=== PATIENT | female | born 1960 | race Caucasian/White ===

== ENCOUNTER 2022-04-10 08:00 | Outpatient (CLI) | payer OTHER, SELFPAY ==
[2022-04-10 14:20] LABS: Chloride* 105 mmol/L (96-114); Potassium* 4.5 mmol/L (3.6-5.1); Sodium* 141 mmol/L (135-149)
[2022-04-10 14:23] LABS: Blood Urea Nitrogen* 16 mg/dL (7-30); Carbon Dioxide* 29 mmol/L (20-32); Cholesterol* 152 mg/dL (90-199); Creatinine* 0.8 mg/dL (0.5-1.5); Estimated Glomerular Filt Rate 83 ml/min; Glucose* 80 mg/dL (60-115); Triglycerides* 80 mg/dL (40-149)
[2022-04-10 14:24] LABS: Calcium* 9.9 mg/dL (8.4-10.6); HDL Cholesterol* 56 mg/dL (>=50); LDL Cholesterol Calculated 80 mg/dL (<100)
== END 2022-04-10 08:01 | disposition home or self-care (01) ==
PROVIDERS: PCP Family Medicine; Visit Provider Family Medicine
DX: E78.5 Hyperlipidemia, unspecified (principal); Z13.1 Encounter for screening for diabetes mellitus
CPT/HCPCS: 80048; 80061

== ENCOUNTER 2022-05-19 19:08 | Outpatient (CLI) | payer OTHER, SELFPAY ==
--- NOTE | 2022-05-19 19:30 | CRLHL7_ITS ---
For Patients: As a result of the Century Cures Act, medical imaging exams and procedure reports are released immediately into your electronic medical record. You may view this report before your referring provider. If you have questions, please contact your health care provider. BILATERAL SCREENING MAMMOGRAM WITH COMPUTER-AIDED DETECTION TECHNIQUE: CC and MLO views were obtained. These mammographic images have been obtained using full-field digital technique. These mammographic images were interpreted with the benefit of computer-aided detection. COMPARISON FILM: 04/29/2021, 03/15/2020, 10/14/2018. FINDINGS: There are scattered areas of fibroglandular density IMPRESSION: There is no radiographic evidence for malignancy. ASSESSMENT: BI-RADS Category 1: Negative RECOMMENDATION: Routine screening mammogram in 1 year. A lay language report of this examination will be provided to the patient. Aroldo Cisneros M.D. Diagnostic Radiologist [email or web address] Transcribed: 4:23 pm DW/Dictated by: Aroldo Cisneros MD @ 05/20/2022 4:39:00 PM (Electronically Signed)
== END 2022-05-19 19:09 | disposition home or self-care (01) ==
LOC: MAMMO 19:09
PROVIDERS: PCP Family Medicine; Visit Provider Family Medicine
DX: Z12.31 Encounter for screening mammogram for malignant neoplasm of breast (principal)
CPT/HCPCS: 77063; 77067

== ENCOUNTER 2023-04-16 08:05 | Outpatient (CLI) | payer OTHER, SELFPAY | END 2023-04-16 08:06 | disposition home or self-care (01) | PROVIDERS: PCP Family Medicine; Visit Provider Family Medicine | DX: E78.5 Hyperlipidemia, unspecified (principal); Z13.1 Encounter for screening for diabetes mellitus | CPT/HCPCS: 80048; 80061 ==

== ENCOUNTER 2023-12-31 15:12 | Outpatient (CLI) | payer OTHER, SELFPAY ==
--- NOTE | 2023-12-31 15:30 | CRLHL7_ITS ---
For Patients: As a result of the Century Cures Act, medical imaging exams and procedure reports are released immediately into your electronic medical record. You may view this report before your referring provider. If you have questions, please contact your health care provider. INDICATION: Bilateral hearing loss. TECHNIQUE: Sagittal T1 axial FLAIR T2 diffusion-weighted gadolinium-enhanced axial and coronal T1 images of the entire brain. Thin section axial and coronal T1 weighted images with and without gadolinium contrast and fat saturation and high-resolution axial T2 weighted images centering on the internal auditory canals. FINDINGS: There is no evidence of acoustic neuroma/vestibular schwannoma. No pathologic enhancement of the inner ear structures. Normal high T2 signal intensity of the membranous labyrinth noted bilaterally. There are small vascular loops within the CP angle cisterns bilaterally; near the root entry zones of both the 7th and 8th cranial nerves. Routine images of the brain showed normal ventricular size and shape. No evidence of recent ischemic infarction no areas of diffusion restriction no mass effect no evidence of hemorrhage. Few punctate foci of FLAIR/T2 hyperintensity within cerebral white matter may relate to migraine or mild chronic microvascular ischemia. No enhancing intra-axial or extra-axial lesion. Orbits sella paranasal sinuses and skullbase are unremarkable. IMPRESSION: 1. No evidence of acoustic neuroma/vestibular schwannoma. No other focal lesion with attention to the central auditory and vestibular pathways. 2. Small incidental vascular loops in the CP angle cisterns bilaterally, of uncertain significance. 3. Few tiny white matter signal changes as described with migraine or minimal chronic microvascular ischemia. Dictated by Puneet Gilliland MD @ 01/03/2024 2:13:38 PM (Electronically Signed)
== END 2023-12-31 15:13 | disposition home or self-care (01) ==
LOC: MRI 15:13
PROVIDERS: PCP Family Medicine; Visit Provider Otolaryngology
DX: H91.8X3 Other specified hearing loss, bilateral (principal)
CPT/HCPCS: 70553; A9575

== ENCOUNTER 2024-03-17 13:56 | Outpatient (CLI) | payer OTHER, SELFPAY | END 2024-03-17 13:57 | disposition home or self-care (01) | PROVIDERS: PCP Family Medicine; Visit Provider Family Medicine | DX: E78.5 Hyperlipidemia, unspecified (principal); M81.0 Age-related osteoporosis without current pathological fracture; Z13.1 Encounter for screening for diabetes mellitus | CPT/HCPCS: 80048; 80061 ==

== ENCOUNTER 2024-05-31 11:15 | Outpatient (CLI) | payer MEDICARE, SELFPAY ==
--- NOTE | 2024-05-31 11:30 | CRLHL7_ITS ---
For Patients: As a result of the Cures Act, medical imaging exams and procedure reports are released immediately into your electronic medical record. You may view this report before your referring provider. If you have questions, please contact your health care provider. BILATERAL SCREENING MAMMOGRAM WITH COMPUTER-AIDED DETECTION AND TOMOSYNTHESIS TECHNIQUE: CC and MLO views were obtained. These mammographic images have been obtained using full-field digital technique. These mammographic images were interpreted with the benefit of computer-aided detection. Breast Tomosynthesis was used in this interpretation. COMPARISON FILM: 05/19/22, 04/29/21, 03/15/20. FINDINGS: There are scattered areas of fibroglandular density IMPRESSION: There is no radiographic evidence for malignancy. ASSESSMENT: BI-RADS Category 1: Negative RECOMMENDATION: Routine screening mammogram in 1 year. A lay language report of this examination will be provided to the patient. Aroldo Cisneros M.D. Diagnostic Radiologist [email or web address] Transcribed: 4:24 p.mPatsy del rio/Dictated by: Aroldo Cisneros MD @ 05/31/2024 11:47:00 AM (Electronically Signed)
== END 2024-05-31 11:16 | disposition home or self-care (01) ==
LOC: MAMMO 11:20
PROVIDERS: PCP Family Medicine; Visit Provider Family Medicine
DX: Z12.31 Encounter for screening mammogram for malignant neoplasm of breast (principal)
CPT/HCPCS: 77063; 77067

== ENCOUNTER 2025-03-13 07:59 | Outpatient (CLI) | payer MEDICARE, OTHER, SELFPAY ==
--- NOTE | 2025-03-13 09:22 | P.ANES_ITS ---
Anesthesia Charges Start Date/Time Anesthesia Start Date: 03/13/25 Anesthesia Start Time: 08:35 Stop Date/Time Anesthesia Stop Date: 03/13/25 Anesthesia Stop Time: 09:15 Coding CPT Codes CPT Codes: SHRADDHA LWR INTST NDSC NOS - 36034 ([id number]) P2 - PATIENT W/MILD SYST DISEASE, QK - DATABASE SUPPORT 2-4 CNCRNT ANES PROC
--- NOTE | 2025-03-13 09:22 | W.ANESCHARGE ---
Anesthesia Charges Start Date/Time Anesthesia Start Date: 03/13/25 Anesthesia Start Time: 08:35 Stop Date/Time Anesthesia Stop Date: 03/13/25 Anesthesia Stop Time: 09:15 Coding CPT Codes CPT Codes: SHRADDHA LWR INTST NDSC NOS - 24146 ([id number]) P2 - PATIENT W/MILD SYST DISEASE, QK - RAILCAR FOREMAN 2-4 CNCRNT ANES PROC
--- NOTE | 2025-03-13 12:23 | P.ANES_ITS ---
Anesthesia Charges Start Date/Time Anesthesia Start Date: 03/13/25 Anesthesia Start Time: 08:35 Stop Date/Time Anesthesia Stop Date: 03/13/25 Anesthesia Stop Time: 09:15 Coding CPT Codes CPT Codes: SHRADDHA LWR INTST NDSC NOS - [id number] ([id number]) QK - COLD STORAGE SUPERINTENDENT 2-4 CNCRNT SHRADDHA PROC, QX - MEDIA/INSTRUCTIONAL DESIGNER SVC W/ MD MED DIRECTION, P2 - PATIENT W/MILD SYST DISEASE
--- NOTE | 2025-03-13 12:23 | W.ANESCHARGE ---
Anesthesia Charges Start Date/Time Anesthesia Start Date: 03/13/25 Anesthesia Start Time: 08:35 Stop Date/Time Anesthesia Stop Date: 03/13/25 Anesthesia Stop Time: 09:15 Coding CPT Codes CPT Codes: SHRADDHA LWR INTST NDSC NOS - 52700 ([id number]) QK - HYDROMETER TESTER 2-4 CNCRNT SHRADDHA PROC, QX - TOOL SHARPENER SVC W/ MD MED DIRECTION, P2 - PATIENT W/MILD SYST DISEASE
== END 2025-03-13 08:00 | disposition home or self-care (01) ==
PROVIDERS: PCP Family Medicine; Visit Provider Surgery
DX: Z12.11 Encounter for screening for malignant neoplasm of colon (principal); Z86.0100 Personal history of colon polyps, unspecified; D12.0 Benign neoplasm of cecum; D12.3 Benign neoplasm of transverse colon; D12.5 Benign neoplasm of sigmoid colon
CPT/HCPCS: 00811; 45385; 88305; J2704

== ENCOUNTER 2025-03-15 15:18 | Outpatient (CLI) | payer MEDICARE, OTHER, SELFPAY ==
--- NOTE | 2025-03-15 15:30 | CRLHL7_ITS ---
For Patients: As a result of the Century Cures Act, medical imaging exams and procedure reports are released immediately into your electronic medical record. You may view this report before your referring provider. If you have questions, please contact your health care provider. DXA BONE MINERAL DENSITY STUDY Current height (in): 62.5. Weight (lb): 138. Menopause age: 57. Ethnicity: White. 1. Have you had a previous hip or vertebral fracture? No. 2. Have you had any fractures during your adult life which did not result from significant trauma (e.g., auto accident)? No. 3. Did either of your parents have a hip fracture? No. 4. Do you smoke? No. 5. Have you ever taken Glucocorticoids? No. 6. Do you have rheumatoid arthritis? No. 7. Do you have secondary osteoporosis? No. 8. Do you drink 3 or more alcoholic drinks per day? No. 9. Are you being treated for osteoporosis? No. 10. Have you ever taken any of the following medications: Actonel, Evista, Fosamax, Miacalcin, Reclast, Boniva, Forteo, HRT (i.e. estrogen/hormone therapy), Protelos, Prolia, Vitamin D, Calcium, other ??? please specify. ANSWER: Yes, Fosamax, Vitamin D, and Calcium. 11. Do you have any of the following medical conditions: Anorexia or bulimia, asthma or emphysema, end stage renal disease, hyperparathyroidism, any seizure disorders, cancer, inflammatory bowel diseases, hysterectomy, other ??? please specify. ANSWER: No. 12. What was your maximum height (inches)? 64. 13. Do you perform weight bearing exercise regularly? Yes. 14. Do you regularly consume dairy products? Yes. 15. Do you drink caffeinated beverages? Yes. 16. At what age did your period start? not listed. 17. Are you premenopausal? No. 18. How many full term pregnancies have you had? 2. 19. Have you ever missed your period for more than 6 months in a row (not including or menopause)? No. TECHNIQUE: Bone mineral density study was performed using the [employer]. FINDINGS: The results of the study expressed as bone mineral density (BMD) are as follows: Lumbar spine L1 to L4: BMD: 0.936 g/cm2. T-score: -1.0. Z-score: 0.8. Neck Left: BMD: 0.650 g/cm2. T-score: -1.8. Z-score: -0.2. Right: BMD: 0.599 g/cm2. T-score: -2.2. Z-score: -0.7. Total Left: BMD: 0.799 g/cm2. T-score: -1.2. Z-score: 0.1. Right: BMD: 0.766 g/cm2. T-score: -1.4. Z-score: -0.2. IMPRESSION: Normal bone density. COMPARISON: Compared with scan of 08/30/2017, the bone mineral density has increased by 9.7 percent at the spine and increased by 12.3 percent at the hip. Compared with scan of02/25/2015, the bone mineral density has increased by 13.7 percent at the spine and increased by 5.4 percent at the hip. FRAX 10-year Fracture Risk Major Osteoporotic Fracture: 12 percent Hip Fracture: 2.2 percent Reported Risk Factors: [place] () Neck BMD=0.599, BMI=24.8 Aroldo Cisneros M.D. Diagnostic Radiologist [email or web address] DW/Dictated by: Aroldo Cisneros MD @ 03/16/2025 10:29:00 AM (Electronically Signed)
== END 2025-03-15 15:19 | disposition home or self-care (01) ==
LOC: RAD 15:18
PROVIDERS: PCP Family Medicine; Visit Provider Family Medicine
DX: M85.80 Other specified disorders of bone density and structure, unspecified site (principal)
CPT/HCPCS: 77080

== ENCOUNTER 2025-03-23 08:43 | Outpatient (CLI) | payer MEDICARE, OTHER, SELFPAY | END 2025-03-23 08:44 | disposition home or self-care (01) | LOC: NFLDREF 03-26 17:48 | PROVIDERS: PCP Family Medicine; Referring Provider Family Medicine; Visit Provider Family Medicine | DX: E78.5 Hyperlipidemia, unspecified (principal) | CPT/HCPCS: 80053; 80061 ==

== ENCOUNTER 2025-06-05 15:51 | Outpatient (CLI) | payer MEDICARE, OTHER, SELFPAY ==
--- NOTE | 2025-06-05 16:20 | CRLHL7_ITS ---
For Patients: As a result of the Century Cures Act, medical imaging exams and procedure reports are released immediately into your electronic medical record. You may view this report before your referring provider. If you have questions, please contact your health care provider. INDICATION: BILATERAL SCREENING MAMMOGRAM, ASYMPTOMATIC 65 Y/O FEMALE COMPARISON: 05/31/2024, 05/19/2022, 04/29/2021 TECHNIQUE: Digital mammogram in CC and MLO projections including computer-aided detection (CAD) and tomosynthesis. BREAST COMPOSITION: There are scattered areas of fibroglandular density. FINDINGS: No suspicious findings. ASSESSMENT: BI-RADS 1 Negative RECOMMENDATION: Annual screening mammogram. A lay language report of this examination will be provided to the patient. Dictated by: Paige Saxena MD @ 06/07/2025 07:42:14 (Electronically Signed)
== END 2025-06-05 15:52 | disposition home or self-care (01) ==
LOC: MAMMO 15:52
PROVIDERS: PCP Family Medicine; Visit Provider Family Medicine
DX: Z12.31 Encounter for screening mammogram for malignant neoplasm of breast (principal)
CPT/HCPCS: 77063; 77067